=== PATIENT | female | born 1975 | race Caucasian/White ===

== ENCOUNTER 2017-10-06 17:46 | Emergency (ER) | payer OTHER ==
[~2017-10-06] VITALS: Ht 149.9 cm; Wt 81.6 kg
== END 2017-10-06 20:40 | disposition home or self-care (01) ==
LOC: ER 17:46
DX: R20.0 Anesthesia of skin (principal)

== ENCOUNTER 2021-11-19 09:59 | Outpatient (CLI) | payer OTHER | END 2021-11-19 10:02 | disposition home or self-care (01) | LOC: RAD 09:59 | PROVIDERS: ATTEND Physical Medicine & Rehabilitation Sports Medicine | DX: M54.2 Cervicalgia (principal) ==

== ENCOUNTER 2022-10-31 18:37 | Emergency (ER) | payer OTHER ==
[~2022-10-31] VITALS: Ht 149.9 cm; Wt 86.2 kg
[2022-10-31] MEDS ORDERED: FLUTICASONE-SA1 EAC5 (19:32)
[2022-10-31] MEDS ORDERED: DILTIAZEM ER120 M2 (19:32)
[2022-11-01] MEDS ORDERED: ZOFRAN8 MG PO (02:53)
[2022-11-01] MEDS ORDERED: PEPCID40 MG PO (02:53)
== END 2022-11-01 03:07 ==
LOC: ER 18:37
DX: K29.70 Gastritis, unspecified, without bleeding (principal)

== ENCOUNTER → 2024-03-27 07:28 | Outpatient (CLI) | payer OTHER ==
[~2024-03-27 07:28] MED LIST: CIPRO500 MG PO; DILTIAZEM ER120 M2; FLUTICASONE-SA1 EAC5; ONDANSETRON ODT8 MG PO; PEPCID AC20 MG PO; PEPCID40 MG PO; SPIRIVA RESPIMAT4 G1; ZOFRAN8 MG PO
[2024-03-27 08:44] LABS: URINE APPEARANCE Clear; URINE BILIRRUBIN Negative (NEGATIVE); URINE COLOR Yellow; URINE GLUCOSE Negative (NEGATIVE); URINE KETONE Negative (NEGATIVE); URINE LEUKOCYTE Negative; URINE NITRATE Negative; URINE PROTEIN Negative (NEGATIVE); URINE UROBILINOGEN 0.2 E.U./dl
[2024-03-27 08:48] LABS: URINE BACTERIA 352.6 uL (0.0-1933); URINE EPITHELIAL CELLS 14.5 uL (0.0-38.8); URINE RBC 12.9 uL (0.0-20.8); URINE WBC 3.3 uL (0.0-23.2)
[2024-03-27 09:04] LABS: URINE BLOOD TRACE
[2024-03-27 09:39] LABS: ALBUMIN 3.4 gm/dL (3.4-5.0); BILIRUBIN TOTAL 0.37 mg/dL (0.3-1.2); CHOL HDL RATIO 2.1 (0-5.0); CREATININE SERUM 0.61 mg/dL (0.55-1.02); GFR 103.82; GLOBULINA 3.6 G/DL (2.4-3.5); POTASSIUM 4.57 mEq/L (3.5-5.1); T4 TOTAL 7.36 UG/DL (4.8-13.9); TSH 3.04 uIU/mL (0.358-3.74)
[2024-03-27 10:37] LABS: HEMATOCRIT 39.4 % (36.0-45.00); HEMOGLOBIN 13.3 g/dL (12.0-15.00); MEAN CELL VOLUME 85.4 fL (80.00-100.00); MEAN CORPUSCULAR HEMOGLOBIN 28.9 pg (27.00-32.0); MEAN CORPUSCULAR HGB CONC 33.8 g/dl (32.0-36.0); PLATELET COUNT 374 K/uL (150-450); RED BLOOD COUNT 4.62 M/uL (4.00-6.00); RED CELL DISTRIBUTION WIDTH 13.8 % (11.5-14.5)
[2024-03-27 15:38] LABS: ob NEGATIVE (NEGATIVE)
[2024-03-29 11:09] LABS: T3 TOTAL 1.63 ng/ml (0.846-2.02); VITAMIN D3 25 HYDROXY 29.03 ng/ml (30-120)
== END | disposition home or self-care (01) ==
LOC: LAB 07:28
PROVIDERS: ATTEND Obstetrics & Gynecology
DX: D64.3 Other sideroblastic anemias (principal); N39.0 Urinary tract infection, site not specified; K74.60 Unspecified cirrhosis of liver; E78.00 Pure hypercholesterolemia, unspecified; E03.9 Hypothyroidism, unspecified; N64.3 Galactorrhea not associated with childbirth; E11.8 Type 2 diabetes mellitus with unspecified complications; Z85.43 Personal history of malignant neoplasm of ovary; Z85.44 Personal history of malignant neoplasm of other female genital organs

== ENCOUNTER 2024-11-29 23:37 | Emergency (ER) | payer OTHER ==
[~2024-11-29] VITALS: Ht 149.9 cm; Wt 88.5 kg
[2024-11-30] MEDS ORDERED: KETOROLAC TROMETHAMINE 30 MG VIAL IV STA (03:04)
[2024-11-30] MEDS ORDERED: MORPHINE SULFATE 4 MG/ML VIAL IV STA (03:06)
[2024-11-30] MEDS ORDERED: KETOROLAC TROMETHAMINE 30 MG VIAL ONE (03:22)
[2024-11-30 03:39] LABS: HEMATOCRIT 39.6 % (36.0-45.00); HEMOGLOBIN 13.1 g/dL (12.0-15.00); MEAN CELL VOLUME 86.3 fL (80.00-100.00); MEAN CORPUSCULAR HEMOGLOBIN 28.5 pg (27.00-32.0); MEAN CORPUSCULAR HGB CONC 33.1 g/dl (32.0-36.0); PLATELET COUNT 368 K/uL (150-450); RED BLOOD COUNT 4.59 M/uL (4.00-6.00); RED CELL DISTRIBUTION WIDTH 13.3 % (11.5-14.5)
[2024-11-30 04:01] LABS: CALCIUM 9.5 mg/dL (8.5-10.1); CREATININE SERUM 0.6 mg/dL (0.55-1.02); GFR 105.82; POTASSIUM 3.75 mEq/L (3.5-5.1)
[2024-11-30 04:43] LABS: PH,URINE 5.5 (5.0-8.0); URINE APPEARANCE Clear; URINE BILIRRUBIN Negative (NEGATIVE); URINE BLOOD Negative; URINE COLOR Yellow; URINE GLUCOSE Negative (NEGATIVE); URINE KETONE Negative (NEGATIVE); URINE LEUKOCYTE Negative; URINE NITRATE Negative; URINE PROTEIN Negative (NEGATIVE); URINE UROBILINOGEN 0.2 E.U./dl
[2024-11-30 04:47] LABS: URINE BACTERIA 139.4 uL (0.0-1933); URINE EPITHELIAL CELLS 9.3 uL (0.0-38.8); URINE RBC 10.1 uL (0.0-20.8); URINE WBC 3.9 uL (0.0-23.2)
[2024-11-30 04:50] LABS: URINE CAST 0.14 uL (0.0-1.40)
[2024-11-30] MEDS ORDERED: PEPCID AC20 MG PO (08:46)
[2024-11-30] MEDS ORDERED: TAMS0.4C PO (08:46)
[2024-11-30] MEDS ORDERED: KETO10TA2 PO (08:46)
[2024-11-30] MEDS ORDERED: BACTRIM DS TAB1 EACH PO (08:46)
== END 2024-11-30 09:02 | disposition home or self-care (01) ==
LOC: ER 23:38
DX: R10.31 Right lower quadrant pain (principal); M54.9 Dorsalgia, unspecified; N28.1 Cyst of kidney, acquired; N20.0 Calculus of kidney

== ENCOUNTER → 2025-01-05 08:39 | Outpatient (CLI) | payer OTHER ==
[~2025-01-05 08:39] MED LIST changes: +BACTRIM DS TAB1 EACH PO; +KETO10TA2 PO; +TAMS0.4C PO
[2025-01-05 09:59] LABS: HEMATOCRIT 42.5 % (34.1-44.9); HEMOGLOBIN 13.8 g/dL (11.2-15.7); LYMPH # 1.86 (1.18-3.74); MEAN CORPUSCULAR HEMOGLOBIN 27.8 pg (25.6-32.2); MONO % 6.8 % (4.7-12.5); NEUT # 6.36 (1.56-6.13); NEUT % 71.9 % (34.0-71.1); PLATELET COUNT 385 K/uL (163-369); RED BLOOD COUNT 4.97 M/uL (3.93-5.22); RED CELL DISTRIBUTION WIDTH 13.1 % (11.6-14.4)
[2025-01-05 10:00] LABS: PH,URINE 5.5 (5.0-8.0); URINE APPEARANCE Clear; URINE BILIRRUBIN Negative (NEGATIVE); URINE BLOOD Small; URINE COLOR Yellow; URINE GLUCOSE Negative (NEGATIVE); URINE KETONE Negative (NEGATIVE); URINE LEUKOCYTE Negative; URINE NITRATE Negative; URINE PROTEIN Negative (NEGATIVE); URINE UROBILINOGEN 0.2 E.U./dl
[2025-01-05 10:09] LABS: URINE BACTERIA 111.3 uL (0.0-1933); URINE RBC 20.6 uL (0.0-20.8); URINE WBC 1.8 uL (0.0-23.2)
[2025-01-05 10:23] LABS: URINE CAST 0.14 uL (0.0-1.40)
[2025-01-05 12:19] LABS: ALBUMIN 3.4 gm/dL (3.4-5.0); BILIRUBIN TOTAL 0.34 mg/dL (0.3-1.2); CALCIUM 9.4 mg/dL (8.5-10.1); CHOL HDL RATIO 2.3 (0-5.0); CREATININE SERUM 0.69 mg/dL (0.55-1.02); FREE TRIODOTIRONINE 2.07 pg/ml (2.18-3.98); GFR 89.69; GLOBULINA 4.1 G/DL (2.4-3.5); POTASSIUM 4.47 mEq/L (3.5-5.1); T4 FREE 0.97 NG/ML (0.76-1.46); TOTAL PROTEIN 7.5 gm/dL (6.4-8.2)
[2025-01-05 14:36] LABS: CORTISOL 2.76 ug/dl; FOLIC ACID 9.87 ng/ml (4.78-20)
[2025-01-05 16:02] LABS: VITAMIN D3 25 HYDROXY 28.16 ng/ml (30-120)
[2025-01-06 05:07] LABS: ESTRADIOL SERUM 60.3 pg/mL (.)
[2025-01-06 09:08] LABS: ACTH 3.9 pg/mL (7.2-63.3); FOLLICLE STIMULATING HORMONE 5.7 mIU/mL (.); INSULIN LEVELS 21.9 uIU/mL (2.6-24.9); LEUTEINIZING HORMONE 3.8 mIU/mL (.); PROLACTIN 14.7 ng/mL (3.6-25.2)
== END | disposition home or self-care (01) ==
LOC: LAB 08:39
PROVIDERS: ATTEND Internal Medicine Endocrinology, Diabetes & Metabolism
DX: E11.65 Type 2 diabetes mellitus with hyperglycemia (principal); E03.9 Hypothyroidism, unspecified; D64.9 Anemia, unspecified; E53.8 Deficiency of other specified B group vitamins; E78.2 Mixed hyperlipidemia; E22.1 Hyperprolactinemia; E55.9 Vitamin D deficiency, unspecified; N39.0 Urinary tract infection, site not specified; N92.5 Other specified irregular menstruation; C64.9 Malignant neoplasm of unspecified kidney, except renal pelvis

== ENCOUNTER 2025-01-07 08:50 | Outpatient (CLI) | payer OTHER | END 2025-01-07 09:01 | disposition home or self-care (01) | LOC: MRI 08:50 | DX: M54.30 Sciatica, unspecified side (principal); R10.32 Left lower quadrant pain; R19.04 Left lower quadrant abdominal swelling, mass and lump | CPT/HCPCS: 72158 ==

== ENCOUNTER 2025-03-07 08:51 | Outpatient (CLI) | payer OTHER ==
[2025-03-07 10:14] LABS: BASO % 0.2 % (0.1-1.2); EOS # 0.00 (0.04-0.54); EOS % 0.0 % (0.7-7.0); LYMPH # 2.32 (1.18-3.74); LYMPH % 39.6 % (19.3-53.1); MEAN PLATELET VOLUME 10.70 fl (9.4-12.4); MONO # 0.54 (0.24-0.82); MONO % 9.2 % (4.7-12.5); NEUT # 2.97 (1.56-6.13); NEUT % 50.7 % (34.0-71.1); RED CELL DISTRIBUTION WIDTH 13.5 % (11.6-14.4)
== END 2025-03-07 08:53 | disposition home or self-care (01) ==
LOC: LAB 08:51
PROVIDERS: ATTEND Internal Medicine
DX: I10 Essential (primary) hypertension (principal); E78.5 Hyperlipidemia, unspecified; E78.2 Mixed hyperlipidemia; D68.9 Coagulation defect, unspecified; N40.1 Benign prostatic hyperplasia with lower urinary tract symptoms; E03.8 Other specified hypothyroidism; M06.4 Inflammatory polyarthropathy; Z85.038 Personal history of other malignant neoplasm of large intestine; Z12.11 Encounter for screening for malignant neoplasm of colon; E11.9 Type 2 diabetes mellitus without complications; E55.9 Vitamin D deficiency, unspecified; K76.9 Liver disease, unspecified; N20.0 Calculus of kidney; N39.0 Urinary tract infection, site not specified; Z12.5 Encounter for screening for malignant neoplasm of prostate; M10.9 Gout, unspecified; R19.5 Other fecal abnormalities; N40.0 Benign prostatic hyperplasia without lower urinary tract symptoms

== ENCOUNTER → 2025-05-07 08:11 | Outpatient (CLI) | payer OTHER ==
[2025-05-07 09:33] LABS: URINE APPEARANCE Clear; URINE BILIRRUBIN Negative (NEGATIVE); URINE BLOOD Negative; URINE COLOR Yellow; URINE GLUCOSE Negative (NEGATIVE); URINE KETONE Negative (NEGATIVE); URINE LEUKOCYTE Negative; URINE NITRATE Negative; URINE PROTEIN Negative (NEGATIVE); URINE UROBILINOGEN 0.2 E.U./dl
[2025-05-07 09:35] LABS: URINE BACTERIA 219.6 uL (0.0-1933); URINE EPITHELIAL CELLS 12.6 uL (0.0-38.8); URINE RBC 15.1 uL (0.0-20.8); URINE WBC 3.6 uL (0.0-23.2)
[2025-05-07 09:41] LABS: URINE CAST 0.00 uL (0.0-1.40)
[2025-05-07 09:42] LABS: BASO % 0.2 % (0.1-1.2); EOS # 0.00 (0.04-0.54); EOS % 0.0 % (0.7-7.0); LYMPH # 2.13 (1.18-3.74); LYMPH % 36.2 % (19.3-53.1); MEAN PLATELET VOLUME 10.90 fl (9.4-12.4); MONO # 0.52 (0.24-0.82); MONO % 8.8 % (4.7-12.5); NEUT # 3.20 (1.56-6.13); NEUT % 54.5 % (34.0-71.1); RED CELL DISTRIBUTION WIDTH 13.8 % (11.6-14.4)
[2025-05-07 09:59] LABS: CREATININE URINE RANDOM 144.0 MG/DL (30-125)
[2025-05-07 10:10] LABS: BUN CREA RATIO 18.0 (7.0-25.0); CREATININE SERUM 0.83 mg/dL (0.55-1.02); GFR 72.47; GLUCOSE FASTING 78.0 mg/dL (65-100); OSMOLALITY SERUM 285.0 MOSM/KG (275-295)
== END | disposition home or self-care (01) ==
LOC: LAB 08:11
PROVIDERS: ATTEND Internal Medicine Nephrology
DX: N18.32 Chronic kidney disease, stage 3b (principal); I10 Essential (primary) hypertension; R80.9 Proteinuria, unspecified

== ENCOUNTER 2025-05-24 07:45 | Outpatient (CLI) | payer OTHER | END 2025-05-24 07:47 | disposition home or self-care (01) | LOC: SONOGRAMA 07:45 | DX: L02.818 Cutaneous abscess of other sites (principal) ==

== ENCOUNTER 2025-05-24 09:29 | Outpatient (CLI) | payer OTHER ==
[2025-05-24 10:01] LABS: BASO % 0.0 % (0.1-1.2); EOS # 0.00 (0.04-0.54); EOS % 0.0 % (0.7-7.0); LYMPH # 2.29 (1.18-3.74); LYMPH % 60.3 % (19.3-53.1); MEAN PLATELET VOLUME 10.40 fl (9.4-12.4); MONO # 0.32 (0.24-0.82); MONO % 8.4 % (4.7-12.5); NEUT # 1.19 (1.56-6.13); NEUT % 31.3 % (34.0-71.1); RED CELL DISTRIBUTION WIDTH 13.8 % (11.6-14.4)
[2025-05-24 10:09] LABS: URINE APPEARANCE Clear; URINE BILIRRUBIN Negative (NEGATIVE); URINE BLOOD Negative; URINE COLOR Yellow; URINE GLUCOSE Negative (NEGATIVE); URINE KETONE Negative (NEGATIVE); URINE LEUKOCYTE Negative; URINE NITRATE Negative; URINE PROTEIN Negative (NEGATIVE); URINE UROBILINOGEN 0.2 E.U./dl
[2025-05-24 10:10] LABS: URINE BACTERIA 339.5 uL (0.0-1933); URINE EPITHELIAL CELLS 19.8 uL (0.0-38.8); URINE RBC 24.3 uL (0.0-20.8); URINE WBC 3.5 uL (0.0-23.2)
[2025-05-24 10:16] LABS: URINE CAST 0.00 uL (0.0-1.40)
[2025-05-24 10:36] LABS: BUN CREA RATIO 14.0 (7.0-25.0); CREATININE SERUM 0.87 mg/dL (0.55-1.02); GFR 68.64; GLUCOSE FASTING 71.0 mg/dL (65-100); OSMOLALITY SERUM 281.0 MOSM/KG (275-295)
== END 2025-05-24 09:35 | disposition home or self-care (01) ==
LOC: LAB 09:29
DX: N39.0 Urinary tract infection, site not specified (principal); C64.2 Malignant neoplasm of left kidney, except renal pelvis

== ENCOUNTER → 2025-06-18 09:09 | Outpatient (CLI) | payer OTHER ==
[2025-06-18 10:24] LABS: BASO % 0.0 % (0.1-1.2); EOS # 0.00 (0.04-0.54); EOS % 0.0 % (0.7-7.0); LYMPH # 1.88 (1.18-3.74); LYMPH % 33.5 % (19.3-53.1); MEAN PLATELET VOLUME 10.40 fl (9.4-12.4); MONO # 0.48 (0.24-0.82); MONO % 8.5 % (4.7-12.5); NEUT # 3.24 (1.56-6.13); NEUT % 57.6 % (34.0-71.1); RED CELL DISTRIBUTION WIDTH 13.7 % (11.6-14.4)
[2025-06-18 10:26] LABS: URINE APPEARANCE Clear; URINE BILIRRUBIN Negative (NEGATIVE); URINE BLOOD Negative; URINE COLOR Yellow; URINE GLUCOSE Negative (NEGATIVE); URINE KETONE Negative (NEGATIVE); URINE LEUKOCYTE Negative; URINE NITRATE Negative; URINE PROTEIN Negative (NEGATIVE); URINE UROBILINOGEN 0.2 E.U./dl
[2025-06-18 10:30] LABS: URINE BACTERIA 83.9 uL (0.0-1933); URINE EPITHELIAL CELLS 10.7 uL (0.0-38.8); URINE RBC 7.1 uL (0.0-20.8); URINE WBC 1.8 uL (0.0-23.2)
[2025-06-18 10:51] LABS: ERYTHROCYTE SEDIMENTATION RATE 30 mm/hr (0-30)
[2025-06-18 10:52] LABS: URINE CAST 0.29 uL (0.0-1.40)
[2025-06-18 11:06] LABS: ALT/SGPT 30 U/L (12-78); AST/SGOT 17 U/L (15-37); BILIRUBIN TOTAL 0.26 mg/dL (0.3-1.2); BILIRUBIN,CONJUGATED < 0.10 mg/dL (0.0-0.2); BUN CREA RATIO 18 (7.0-25.0); CHOL HDL RATIO 2.2 (0-5.0); CREATININE SERUM 0.94 mg/dL (0.55-1.02); GFR 62.78; GLOBULINA 3.7 G/DL (2.4-3.5); GLUCOSE FASTING 81 mg/dL (65-100); HDL 68 mg/dl (40-60); LDL 63 mg/dl (0-130); OSMOLALITY SERUM 284 MOSM/KG (275-295); TSH 1.880 uIU/mL (0.358-3.74); VLDL 15 (0-39)
== END | disposition home or self-care (01) ==
LOC: LAB 09:09
DX: I10 Essential (primary) hypertension (principal); E78.5 Hyperlipidemia, unspecified; E78.2 Mixed hyperlipidemia; D68.9 Coagulation defect, unspecified; E03.8 Other specified hypothyroidism; M06.4 Inflammatory polyarthropathy; Z85.038 Personal history of other malignant neoplasm of large intestine; Z12.11 Encounter for screening for malignant neoplasm of colon; E55.9 Vitamin D deficiency, unspecified; K76.9 Liver disease, unspecified; N20.0 Calculus of kidney; N39.9 Disorder of urinary system, unspecified; M10.9 Gout, unspecified; R19.5 Other fecal abnormalities; K90.49 Malabsorption due to intolerance, not elsewhere classified; M32.9 Systemic lupus erythematosus, unspecified

== ENCOUNTER 2025-06-27 07:41 | Outpatient (CLI) | payer OTHER | END 2025-06-27 07:44 | disposition home or self-care (01) | LOC: SONOGRAMA 07:41 | PROVIDERS: ATTEND Internal Medicine Endocrinology, Diabetes & Metabolism | DX: E04.1 Nontoxic single thyroid nodule (principal) ==

== ENCOUNTER → 2025-06-27 08:23 | Outpatient (CLI) | payer OTHER ==
[2025-06-27 09:38] LABS: BASO % 0.1 % (0.1-1.2); EOS # 0.00 (0.04-0.54); EOS % 0.0 % (0.7-7.0); LYMPH # 1.96 (1.18-3.74); LYMPH % 28.2 % (19.3-53.1); MEAN PLATELET VOLUME 10.80 fl (9.4-12.4); MONO # 0.41 (0.24-0.82); MONO % 5.9 % (4.7-12.5); NEUT # 4.56 (1.56-6.13); NEUT % 65.5 % (34.0-71.1); RED CELL DISTRIBUTION WIDTH 14.0 % (11.6-14.4)
[2025-06-27 10:39] LABS: ALT/SGPT 27.0 U/L (12-78); AST/SGOT 11.0 U/L (15-37); BILIRUBIN TOTAL 0.34 mg/dL (0.3-1.2); BUN CREA RATIO 20.0 (7.0-25.0); CHOL HDL RATIO 2.1 (0-5.0); CREATININE SERUM 0.76 mg/dL (0.55-1.02); FREE TRIODOTIRONINE 2.38 pg/ml (2.18-3.98); GFR 80.23; GLOBULINA 3.5 G/DL (2.4-3.5); GLUCOSE FASTING 80.0 mg/dL (65-100); HDL 62.0 mg/dl (40-60); LDL 57.0 mg/dl (0-130); OSMOLALITY SERUM 281.0 MOSM/KG (275-295); T4 FREE 0.81 NG/ML (0.76-1.46); TSH 2.13 uIU/mL (0.358-3.74); VLDL 14.0 (0-39)
== END | disposition home or self-care (01) ==
LOC: LAB 08:23
PROVIDERS: ATTEND Internal Medicine Endocrinology, Diabetes & Metabolism
DX: E03.9 Hypothyroidism, unspecified (principal); D64.9 Anemia, unspecified; E78.2 Mixed hyperlipidemia; I10 Essential (primary) hypertension; E55.9 Vitamin D deficiency, unspecified

== ENCOUNTER → 2025-08-09 08:24 | Outpatient (CLI) | payer OTHER ==
[2025-08-09 09:13] LABS: BASO % 0.0 % (0.1-1.2); EOS # 0.00 (0.04-0.54); EOS % 0.0 % (0.7-7.0); LYMPH # 1.90 (1.18-3.74); LYMPH % 35.8 % (19.3-53.1); MEAN PLATELET VOLUME 10.10 fl (9.4-12.4); MONO # 0.41 (0.24-0.82); MONO % 7.7 % (4.7-12.5); NEUT # 2.97 (1.56-6.13); NEUT % 56.1 % (34.0-71.1); RED CELL DISTRIBUTION WIDTH 12.7 % (11.6-14.4)
[2025-08-09 09:36] LABS: URINE APPEARANCE Clear; URINE BILIRRUBIN Negative (NEGATIVE); URINE BLOOD Negative; URINE COLOR Yellow; URINE GLUCOSE Negative (NEGATIVE); URINE KETONE Negative (NEGATIVE); URINE LEUKOCYTE Negative; URINE NITRATE Negative; URINE PROTEIN Negative (NEGATIVE); URINE UROBILINOGEN 0.2 E.U./dl
[2025-08-09 09:40] LABS: URINE BACTERIA 245.8 uL (0.0-1933); URINE EPITHELIAL CELLS 16.0 uL (0.0-38.8); URINE RBC 10.0 uL (0.0-20.8); URINE WBC 3.0 uL (0.0-23.2)
[2025-08-09 09:47] LABS: URINE CAST 0.00 uL (0.0-1.40)
== END | disposition home or self-care (01) ==
LOC: LAB 08:24
DX: N39.0 Urinary tract infection, site not specified (principal); C64.1 Malignant neoplasm of right kidney, except renal pelvis; E03.8 Other specified hypothyroidism